=== PATIENT | female | born 1985 | race African-American/Black ===

== ENCOUNTER → 2019-01-28 | Outpatient (CLI) | payer OTHER ==
--- NOTE | 2019-01-28 15:05 | RADIOLOGY REPORT (SQ) ---
EXAM DESCRIPTION: BARIUM SWALLOW ESOPHAGUS COMPLETED DATE/TIME: 01/28/2019 8:50 am REASON FOR STUDY: GERD (K21.0) K21.0 GASTRO-ESOPHAGEAL REFLUX DISEASE WITH ESOPHAGITIS COMPARISON: None. TECHNIQUE: Under fluoroscopic guidance, patient ingested effervescent granules followed by thick and thin barium. Fluoroscopic spot images and routine radiographic images acquired and stored on PACS. 12 MM BARIUM TABLET GIVEN: Barium tablet passed easily through the esophagus and into the stomach wit hout delay. LIMITATIONS: None. FLUOROSCOPY TIME: FLUORO TIME: 2.11 minutes 10 images saved to PACS. FINDINGS: NEUROMUSCULAR COORDINATION OF SWALLOW: Normal. No aspiration. ESOPHAGEAL MOTILITY: Normal peristalsis. No esophageal spasm. ESOPHAGEAL MUCOSA: Normal mucosa without masses or ulceration. GASTRO-ESOPHAGEAL JUNCTION: Small hiatal hernia with moderate gastroesophageal reflux. NON-GI TRACT STRUCTURES: No significant finding. OTHER: No other significant finding. IMPRESSION: SMALL HIATAL HERNIA WITH MODERATE GASTROESOPHAGEAL REFLUX. OTHERWISE UNREMARKABLE STUDY . . RECOMMENDATION: None COMMENT: None Quality ID [id number]: Final reports for procedures using fluoroscopy that document radiation exposure divya juanpablo, or exposure time and number of fluorographic images (if radiation exposure indices are not avail able) TECHNICAL DOCUMENTATION: JOB ID: [id number] [employer]- All Rights Reserved Reading location - IP/workstation name: [email or web address] [id number]
== END ==
LOC: RAD 07:45
PROVIDERS: ATTEND Physician Assistant
DX: K21.0 Gastro-esophageal reflux disease with esophagitis (principal); K44.9 Diaphragmatic hernia without obstruction or gangrene
CPT/HCPCS: 74220

== ENCOUNTER 2019-03-02 19:17 | Emergency (ER) | payer OTHER ==
--- NOTE | 2019-03-02 20:07 | ER Document Report ---
HPI - HPI Patient complains to provider of: left leg pain Time Seen by Provider: 03/02/19 20:04 Pain Level: 4 Context: Patient is a 33-year-old female presents to the emergency department for pain in her distal left lower extremity. Patient's denying any trauma that she knows of. She is denying any history of gout, she is denying fevers, no redness noted to the left ankle. Patient voices her pain is in the anterior distal aspect of her tibia. Patient denies any new physical activities to produce shinsplints. - REPRODUCTIVE Reproductive: DENIES: : Past Medical History - General Information source: Patient - Social History Smoking Status: Never Smoker Frequency of alcohol use: None Drug Abuse: None Family History: Reviewed & Not Pertinent Patient has suicidal ideation: No Patient has homicidal ideation: No Vertical Provider Document - CONSTITUTIONAL Agree With Documented VS: Yes Notes: GENERAL: Alert, interacts well. No acute distress. HEAD: Normocephalic, atraumatic. EYES: Pupils equal, round, and reactive to light. Extraocular movements intact. ENT: Oral mucosa moist, tongue midline. NECK: Full range of motion. Supple. Trachea midline. LUNGS: Clear to auscultation bilaterally, no wheezes, rales, or rhonchi. No respiratory distress. HEART: Regular rate and rhythm. No murmur ABDOMEN: Soft, non-tender. Non-distended. Bowel sounds present in all 4 quadrants. EXTREMITIES: Moves all 4 extremities spontaneously. normal radial and dorsalis pedis pulses bilaterally. No cyanosis. Slight edema noted distal left lower extremity, no medial or lateral malleolus pain noted left lower extremity. No calf pain noted bilaterally. No erythema noted bilateral ankles. Full range of motion left ankle, left knee, left hip. BACK: no cervical, thoracic, lumbar midline tenderness. No saddle anesthesia, normal distal neurovascular exam. NEUROLOGICAL: Alert and oriented x3. Normal speech. cranial nerves II through XII grossly intact PSYCH: Normal affect, normal mood. SKIN: Warm, dry, normal turgor. No rashes or lesions noted. - INFECTION CONTROL TRAVEL OUTSIDE OF THE [place] IN LAST 30 DAYS: No Course - Re-evaluation Re-evalutation: Tibia/Fibula X-Ray 03/02/19 20:04 IMPRESSION: 1. No acute findings. Patient's x-rays were negative, discussed with her at bedside. Discussed close follow-up with orthopedics. Patient continues to deny any pain medications, she is denying any ankle stirrup, Kaden wrap or crutches. Discussed close follow-up with orthopedics, return precautions discussed. Patient stable for discharge. Discharge - Discharge Clinical Impression: Leg pain, left Condition: Stable Disposition: HOME, SELF-CARE Additional Instructions: As we discussed you have been seen and treated in the emergency department for your left lower leg pain. Your x-rays revealed no signs of broken bones. Please follow-up with orthopedics in the next 12 to 24 hours. Phone numbers will be provided in this packet. Please return to the emergency room for any concerns. Forms: Return to Work Referrals: LUIS E ROSEN PA [Primary Care Provider] - Follow up as needed CINDI ESCAMILLA MD [ACTIVE PROVISIONAL STAFF] - Follow up as needed
--- NOTE | 2019-03-02 21:06 | RADIOLOGY REPORT (SQ) ---
EXAM DESCRIPTION: Left tibia/fibula [facility]Lex: XR TIBIA FIBULA 2 VIEWS Views: 2 CLINICAL HISTORY: 33 years Female, distal pain COMPARISON: None. FINDINGS: Negative for acute fracture, dislocation, or radiopaque foreign body. IMPRESSION: 1. No acute findings.
[2019-03-02 21:28] VITALS: BP 129/84
== END 2019-03-02 21:43 | disposition home or self-care (01) ==
LOC: ER 19:17
DX: M79.605 Pain in left leg (principal)
CPT/HCPCS: 99283